=== PATIENT | female | born 1950 | race Two or more races ===

== ENCOUNTER 2019-01-30 18:55 | Emergency (ER) | payer MEDICARE ==
[2019-01-30] MEDS ORDERED: Ondansetron 4 MG Tab.DIS PO ONE (18:56)
--- NOTE | 2019-01-30 19:23 | EDM.PDOC ---
ED HPI GENERAL MEDICAL PROBLEM - General Chief Complaint: Gastrointestinal Problem Stated Complaint: nausea, vomiting Time Seen by Provider: 01/30/19 19:22 Source of Information: Reports: Patient History Limitations: Reports: No Limitations - History of Present Illness INITIAL COMMENTS - FREE TEXT/NARRATIVE: 68-year-old female with onset of room spinning dizziness approximately 3 days ago that is worse with movement of her head and with sitting or standing. She developed a headache yesterday that is global and is dull and aching. She rates that as about a 8/10. Yesterday she also began having vomiting and has had 4-5 episodes today. It seems to be related to the dizziness and her nausea and dizziness seem to be improved when she is lying flat. There have been no fevers or chills. She has had no ear pain or tinnitus. She does have some nasal congestion that has been present for about 4-5 days. She has had no chest pain or shortness of breath. No cough. She has had no dysuria or hematuria. She has no neck stiffness. Her vision has been good. She has no localized area of weakness or numbness. She has been taking her medications as directed. She has not really been eating for the past few days. There are no other associated signs or symptoms. There are no other modifying factors. Onset: Other (3 days ago) Duration: Getting Worse Location: Reports: Head Quality: Reports: Ache, Dull, Throbbing Severity: Moderate Improves with: Reports: Rest, Other (Lying flat and not moving her head) Worsens with: Reports: Other (Sitting up and walking), Movement Context: Reports: Other (As above) Associated Symptoms: Reports: Headaches, Nausea/Vomiting, Other (Dizziness) Treatments CLASSROOM ASSISTANT: Reports: Other (see below) (Nothing) Parietal Head Pain Score (Numeric/FACES): 8 - Related Data Allergies Allergy/AdvReac Type Severity Reaction Status Date / Time No Known Allergies Allergy Verified 01/30/19 19:37 Home Meds: Home Meds Aspirin [Waylon Chewable] 81 mg PO DAILY 01/30/19 [History] Gabapentin [Neurontin] 300 mg PO TID 01/30/19 [History] Levothyroxine Sodium [Levoxyl] 75 mcg PO DAILY 01/30/19 [History] Lisinopril 30 mg PO DAILY 01/30/19 [History] Meclizine HCl 25 mg PO QID PRN #12 tablet 01/30/19 [Rx] Meloxicam 7.5 mg PO BID 01/30/19 [History] Promethazine [Phenergan] 25 mg PO Q6H PRN #12 tab 01/30/19 [Rx] atorvaSTATin [Lipitor] 20 mg PO DAILY 01/30/19 [History] hydroCHLOROthiazide [Hydrochlorothiazide] 25 mg PO DAILY 01/30/19 [History] metFORMIN [Glucophage] 1,000 mg PO BIDMEALS 01/30/19 [History] Past Medical History Cardiovascular History: Reports: High Cholesterol, Hypertension Neurological History: Reports: Neuropathy, Peripheral Endocrine/Metabolic History: Reports: Diabetes, Type II, Hypothyroidism - Past Surgical History Female Surgical History: Reports: Hysterectomy Endocrine Surgical History: Reports: Thyroidectomy Social & Family History - Tobacco Use Smoking Status *Q: Never Smoker - Alcohol Use Alcohol Use History: No - Living Situation & Occupation Living situation: Reports: , with Spouse Occupation: Retired Social History Comment: Patient is from [place], [place] and visiting. ED ROS GENERAL - Review of Systems Review Of Systems: See Below Constitutional: Reports: No Symptoms HEENT: Reports: Other (Nasal congestion) Respiratory: Reports: No Symptoms Cardiovascular: Reports: No Symptoms GI/Abdominal: Reports: Nausea, Vomiting : Reports: No Symptoms Musculoskeletal: Reports: No Symptoms Skin: Reports: No Symptoms Neurological: Reports: Dizziness, Headache Hematologic/Lymphatic: Reports: No Symptoms Immunologic: Reports: No Symptoms ED EXAM, GI/ABD - Physical Exam Exam: See Below Exam Limited By: No Limitations General Appearance: Alert, WD/WN, Mild Distress Eyes: Bilateral: Normal Appearance, EOMI (There is horizontal nystagmus bilaterally with lateral gaze) Ears: Normal External Exam, Normal Canal, Hearing Grossly Normal, Normal TMs Nose: Normal Inspection, Normal Mucosa, No Blood Throat/Mouth: Normal Voice, No Airway Compromise, Other (Dry mucous membranes) Head: Atraumatic, Normocephalic Neck: Normal Inspection, Supple, Non-Tender, Full Range of Motion Respiratory/Chest: No Respiratory Distress, Lungs Clear, Normal Breath Sounds, No Accessory Muscle Use, Chest Non-Tender Cardiovascular: Normal Peripheral Pulses, Regular Rate, Rhythm, No JVD GI/Abdominal Exam: Normal Bowel Sounds, Soft, Non-Tender, No Mass Back Exam: Normal Inspection, Full Range of Motion Extremities: Normal Inspection, Normal Range of Motion, Non-Tender, No Pedal Edema, Normal Capillary Refill Neurological: Alert, Oriented, CN II-XII Intact, Normal Cognition, No Motor/ Sensory Deficits, Other (No pronator drift. No dysmetria.). No: Sensory/Motor Deficit Skin Exam: Warm, Dry, Intact, Normal Color, No Rash EKG INTERPRETATION EKG Date: 01/30/19 Time: 20:26 Rhythm: NSR Rate (Beats/Min): 73 Wheeler: Normal P-Wave: Present QRS: Normal ST-T: Other (Nonspecific changes) QT: Prolonged Comparison: NA - No Prior EKG Course - Vital Signs Last Recorded V/S: Last Vital Signs Temp 36.4 C 01/30/19 20:00 Pulse 72 01/30/19 22:00 Resp 18 01/30/19 22:00 BP 160/90 H 01/30/19 22:00 Pulse Ox 99 01/30/19 22:00 - Orders/Labs/Meds Orders: Active Orders 24 hr Category Date Time Status EKG Documentation Completion [RC] ASDIRECTED Care 01/30/19 19:39 Active Head wo Cont [CT] Stat Exams 01/30/19 19:37 Ordered Sodium Chloride 0.9% [Normal Saline] 1,000 ml Med 01/30/19 19:45 Active IV ASDIRECTED Sodium Chloride 0.9% [Saline Flush] Med 01/30/19 19:37 Active 10 ml FLUSH ASDIRECTED PRN Peripheral IV Insertion Adult [OM.PC] Routine Oth 01/30/19 19:37 Ordered EKG 12 Lead [EK] Routine Ther 01/30/19 19:37 Ordered Medication Orders Sodium Chloride (Normal Saline) 1,000 mls @ 150 mls/hr IV ASDIRECTED JOSE LUIS Sodium Chloride (Saline Flush) 10 ml FLUSH ASDIRECTED PRN PRN Reason: Keep Vein Open Last Admin: 01/30/19 20:35 Dose: 10 ml Labs: Laboratory Tests 01/30/19 01/30/19 01/30/19 Range/Units 19:30 19:55 19:55 WBC 8.2 (4.5-12.0) X10-3/uL RBC 5.10 (3.23-5.20) x10(6)uL Hgb 15.4 (11.5-15.5) g/dL Hct 46.3 (30.0-51.3) % MCV 90.7 (80-96) fL MCH 30.2 (27.7-33.6) pg MCHC 33.2 (32.2-35.4) g/dL RDW 11.8 (11.5-15.5) % Plt Count 237 (125-369) X10(3)uL MPV 7.5 (7.4-10.4) fL Neut % (Auto) 76.3 (46-82) % Lymph % (Auto) 17.5 (13-37) % [place] % (Auto) 5.5 (4-12) % Eos % (Auto) 0 L (1.0-5.0) % Baso % (Auto) 0 (0-2) % Neut # (Auto) 6.3 (1.6-8.3) # Lymph # (Auto) 1.4 (0.6-5.0) # [place] # (Auto) 0.5 (0.0-1.3) # Eos # (Auto) 0.0 (0.0-0.8) # Baso # (Auto) 0.0 (0.0-0.2) # Sodium 140 (135-145) mmol/L Potassium 3.7 (3.5-5.3) mmol/L Chloride 101 (100-110) mmol/L Carbon Dioxide 28 (21-32) mmol/L BUN 14 (7-18) mg/dL Creatinine 0.8 (0.55-1.02) mg/dL Est Cr Clr Drug Dosing TNP Estimated GFR (MDRD) > 60 (>60) BUN/Creatinine Ratio 17.5 (9-20) Glucose 140 H (80-116) mg/dL Calcium 9.1 (8.6-10.2) mg/dL Total Bilirubin 1.1 (0.1-1.3) mg/dL AST 21 (5-25) IU/L ALT 35 (12-36) U/L Alkaline Phosphatase 53 L (56-112) IU/L Troponin I (<0.017-0.056) ng/mL C-Reactive Protein (0.5-0.9) mg/dL Total Protein 8.2 H (6.0-8.0) g/dL Albumin 3.9 (3.2-4.6) g/dL Globulin 4.3 g/dL Albumin/Globulin Ratio 0.9 Urine Color Yellow (YELLOW) Urine Appearance Clear (CLEAR) Urine pH 8.0 H (5.0-6.5) Ur Specific [place] 1.010 (1.010-1.025) Urine Protein Negative (NEGATIVE) mg/dL Urine Glucose (UA) Normal (NORMAL) mg/dL Urine Ketones 15 H (NEGATIVE) mg/dL Urine Occult Blood Negative (NEGATIVE) Urine Nitrite Negative (NEGATIVE) Urine Bilirubin Negative (NEGATIVE) Urine Urobilinogen Normal (NEGATIVE) mg/dL Ur Leukocyte Esterase Negative (NEGATIVE) Urine RBC 0-5 (0-5) Urine WBC 0-5 (0-5) Ur Squamous Epith Cells Few H (NS,R,O) Urine Bacteria Few H (NS) 01/30/19 01/30/19 Range/Units 19:55 19:55 WBC (4.5-12.0) X10-3/uL RBC (3.23-5.20) x10(6)uL Hgb (11.5-15.5) g/dL Hct (30.0-51.3) % MCV (80-96) fL MCH (27.7-33.6) pg MCHC (32.2-35.4) g/dL RDW (11.5-15.5) % Plt Count (125-369) X10(3)uL MPV (7.4-10.4) fL Neut % (Auto) (46-82) % Lymph % (Auto) (13-37) % [place] % (Auto) (4-12) % Eos % (Auto) (1.0-5.0) % Baso % (Auto) (0-2) % Neut # (Auto) (1.6-8.3) # Lymph # (Auto) (0.6-5.0) # [place] # (Auto) (0.0-1.3) # Eos # (Auto) (0.0-0.8) # Baso # (Auto) (0.0-0.2) # Sodium (135-145) mmol/L Potassium (3.5-5.3) mmol/L Chloride (100-110) mmol/L Carbon Dioxide (21-32) mmol/L BUN (7-18) mg/dL Creatinine (0.55-1.02) mg/dL Est Cr Clr Drug Dosing Estimated GFR (MDRD) (>60) BUN/Creatinine Ratio (9-20) Glucose (80-116) mg/dL Calcium (8.6-10.2) mg/dL Total Bilirubin (0.1-1.3) mg/dL AST (5-25) IU/L ALT (12-36) U/L Alkaline Phosphatase (56-112) IU/L Troponin I < 0.017 L (<0.017-0.056) ng/mL C-Reactive Protein < 0.2 L (0.5-0.9) mg/dL Total Protein (6.0-8.0) g/dL Albumin (3.2-4.6) g/dL Globulin g/dL Albumin/Globulin Ratio Urine Color (YELLOW) Urine Appearance (CLEAR) Urine pH (5.0-6.5) Ur Specific [place] (1.010-1.025) Urine Protein (NEGATIVE) mg/dL Urine Glucose (UA) (NORMAL) mg/dL Urine Ketones (NEGATIVE) mg/dL Urine Occult Blood (NEGATIVE) Urine Nitrite (NEGATIVE) Urine Bilirubin (NEGATIVE) Urine Urobilinogen (NEGATIVE) mg/dL Ur Leukocyte Esterase (NEGATIVE) Urine RBC (0-5) Urine WBC (0-5) Ur Squamous Epith Cells (NS,R,O) Urine Bacteria (NS) Meds: Medications Generic Name Dose Route Start Last Admin Trade Name Freq PRN Reason Stop Dose Admin Sodium Chloride 1,000 mls @ 150 mls/hr 01/30/19 19:45 Normal Saline IV ASDIRECTED JOSE LUIS Sodium Chloride 10 ml 01/30/19 19:37 01/30/19 20:35 Saline Flush FLUSH 10 ml ASDIRECTED PRN Administration Keep Vein Open Discontinued Medications Generic Name Dose Route Start Last Admin Trade Name Freq PRN Reason Stop Dose Admin Diazepam 2.5 mg 01/30/19 19:41 01/30/19 20:11 Valium IV 01/30/19 19:42 2.5 mg ONETIME ONE Administration Diazepam 2.5 mg 01/30/19 20:54 01/30/19 21:25 Valium IV 01/30/19 20:55 2.5 mg ONETIME ONE Administration Sodium Chloride 1,000 mls @ 999 mls/hr 01/30/19 19:41 01/30/19 20:01 Normal Saline IV 01/30/19 20:41 999 mls/hr .BOLUS ONE Administration Sodium Chloride 1,000 mls @ 999 mls/hr 01/30/19 20:55 01/30/19 20:57 Normal Saline IV 01/30/19 21:55 999 mls/hr .BOLUS ONE Administration Meclizine HCl 25 mg 01/30/19 20:54 01/30/19 21:05 Antivert PO 01/30/19 20:55 25 mg ONETIME ONE Administration Ondansetron HCl 4 mg 01/30/19 19:41 01/30/19 20:11 Zofran IVPUSH 01/30/19 19:42 4 mg ONETIME ONE Administration - Radiology Interpretation Free Text/Narrative:: CT scan of head showed no intracranial bleed or mass effect. There was chronic left maxillary sinusitis with central high density suggesting and supinated mucus. This was per the [facility] radiologist. The radiologist felt the differential diagnosis included fungal sinusitis and the patient will need follow-up through her primary doctor. - Re-Assessments/Exams Free Text/Narrative Re-Assessment/Exam: 01/30/19 20:50: The patient feels somewhat improved after the initial meds and most of a 1 L bolus. She still has some dizziness with movement but it is less. Her nausea has resolved. Her blood tests are reassuringly normal. An EKG showed no current of injury or ischemia. Her blood pressure has remained somewhat elevated but she has not taken her medications for the past 2 days secondary to the vomiting. I will repeat the Valium IV and the normal saline bolus 1 L IV. I will also give the patient meclizine 25 mg by mouth. 01/30/19 21:40: The patient feels much improved. She is able to sit without really any dizziness at all. She feels hungry and would like to eat something. The CT scan of her head showed no bleeding or evidence of stroke. There was some evidence of chronic left maxillary sinusitis and the radiologist felt the differential diagnosis included fungal sinusitis and recommended follow-up for the patient. I will have the nursing staff give the patient some applesauce and crackers with some water and see how she tolerates this. 01/30/19 22:30: The patient tolerated by mouth well. Her dizziness is gone. She has no more nausea. She feels much improved. I will send the patient home with starter pack of Zofran. I will also give her prescriptions for meclizine and Phenergan. She is to begin retaking her medications tomorrow morning. She should increase her fluid intake. She needs to plan on following up with her primary doctor when she gets back to [place], [place] this next week. We will have a CD copy of the patient's ED available tomorrow so they can pick it up and I will send a copy of my emergency visit note with the patient so that she may provide this to her doctor. I am unsure of the cause of her dizziness but I feel this is likely labyrinthitis related to a viral type illness. Departure - Departure Time of Disposition: 22:50 Disposition: Home, Self-Care 01 Condition: Good (Improved) Clinical Impression: Vertigo, Dehydration, Chronic left maxillary sinusitis Vomiting Qualifiers: Vomiting type: unspecified Vomiting Intractability: non-intractable Nausea presence: with nausea Qualified Code(s): R11.2 - Nausea with vomiting, unspecified Hypertension Qualifiers: Hypertension type: essential hypertension Qualified Code(s): I10 - Essential ( primary) hypertension - Discharge Information Prescriptions: Meclizine HCl 25 mg PO QID PRN #12 tablet PRN Reason: Dizziness Promethazine [Phenergan] 25 mg PO Q6H PRN #12 tab PRN Reason: Nausea/Vomiting Instructions: Dehydration, Adult, [id number], Vertigo, [id number], Nausea and Vomiting, Adult, [id number] Referrals: PCP,None [Primary Care Provider] - Forms: ED Department Discharge Additional Instructions: Your blood tests were reassuringly normal. Your EKG showed no evidence of a heart attack the CT scan of your brain showed no evidence of stroke or bleeding. There was evidence of a chronic infection in your left maxillary sinus. I am unsure why you had the dizziness but I feel this may well be related to a viral infection causing problem in your inner ear. This should resolve over the next 1-2 days. You should rest. You should increase your fluid intake. Medication as prescribed (Zofran 4 mg ODT--take-home pack, Phenergan 25 mg, meclizine 25 mg). You need to begin to take your regular medication again tomorrow morning. You need to come back to the hospital tomorrow to picking supervisor the CD copy of the CT scan of your brain so that you can take it with you when you go to see your doctor back home. You should follow-up with your doctor when you get back home this next week. Back to the emergency department for worse headache, localized area of weakness or numbness, unrelenting vomiting or any other concerning sign or symptom. - My Orders Last 24 Hours: My Active Orders 01/30/19 19:37 Head wo Cont [CT] Stat Sodium Chloride 0.9% [Saline Flush] 10 ml FLUSH ASDIRECTED PRN Peripheral IV Insertion Adult [OM.PC] Routine EKG 12 Lead [EK] Routine 01/30/19 19:39 EKG Documentation Completion [RC] ASDIRECTED 01/30/19 19:45 Sodium Chloride 0.9% [Normal Saline] 1,000 ml IV ASDIRECTED - Assessment/Plan Last 24 Hours: My Active Orders 01/30/19 19:37 Head wo Cont [CT] Stat Sodium Chloride 0.9% [Saline Flush] 10 ml FLUSH ASDIRECTED PRN Peripheral IV Insertion Adult [OM.PC] Routine EKG 12 Lead [EK] Routine 01/30/19 19:39 EKG Documentation Completion [RC] ASDIRECTED 01/30/19 19:45 Sodium Chloride 0.9% [Normal Saline] 1,000 ml IV ASDIRECTED
[2019-01-30] MEDS ORDERED: Sodium Chloride 0.9% 1,000 ML IV SCH (19:45)
[2019-01-30] MEDS: Sodium Chloride 0.9% 1,000 ML IV ONE ×2 (20:01→20:57)
[2019-01-30] MEDS: diazePAM 5 MG/ML MDV IV ONE ×2 (20:11→21:25)
[2019-01-30] MEDS: Ondansetron 4 MG/2 ML SDV IVPUSH ONE (20:11)
[2019-01-30] MEDS: Sodium Chloride 0.9% 10 ML Syringe FLUSH PRN (20:35)
[2019-01-30] MEDS: Meclizine 25 MG Tab PO ONE (21:05)
== END 2019-01-30 23:10 | disposition home or self-care (01) ==
LOC: FB.ED 18:55
DX: E86.0 Dehydration (principal); R11.2 Nausea with vomiting, unspecified; J32.0 Chronic maxillary sinusitis; I10 Essential (primary) hypertension; E03.9 Hypothyroidism, unspecified; E11.42 Type 2 diabetes mellitus with diabetic polyneuropathy; Z79.82 Long term (current) use of aspirin; Z79.899 Other long term (current) drug therapy; Z79.84 Long term (current) use of oral hypoglycemic drugs; Z79.890 Hormone replacement therapy
CPT/HCPCS: 36415; 70450; 80053; 81001; 84484; 85025; 86140; 93005; 96361; 96374; 96375; 96376; 99284; A9270; J2405; J3360; J7030